=== PATIENT | female | born 1980 | race African-American/Black ===

== ENCOUNTER 2017-10-27 18:58 | Inpatient (IN) | payer MEDICAID ==
[~2017-10-27] VITALS: Ht 170.2 cm; Wt 59.6 kg
[~2017-10-27 18:58] MED LIST: QUET400T PO
[2017-10-27] MEDS ORDERED: LORazepam 2 MG TABLET PO PRN (19:45)
[2017-10-27] MEDS ORDERED: ZOLPIDEM TARTRATE 10 MG TABLET PO PRN (19:45)
[2017-10-27] MEDS ORDERED: QUEtiapine FUMARATE 100 MG TABLET PO PRN (19:45)
[2017-10-27 20:18] VITALS: BP 127/75
[2017-10-27] MEDS: QUEtiapine FUMARATE 200 MG TABLET PO SCH (20:24)
[2017-10-28 08:36] LABS: AMPHET/METH SCREEN,URINE NEGATIVE (NEGATIVE); BARBITURATE SCREEN, URINE NEGATIVE (NEGATIVE); BENZODIAZEPINES SCREEN,URINE NEGATIVE (NEGATIVE); CANNABINOID SCREEN,URINE POSITIVE (NEGATIVE); COCAINE SCREEN,URINE NEGATIVE (NEGATIVE); METHADONE SCREEN, URINE NEGATIVE (NEGATIVE); OPIATE SCREEN,URINE NEGATIVE (NEGATIVE)
[2017-10-28 08:37] LABS: PHENCYCLIDINE SCREEN,URINE NEGATIVE (NEGATIVE)
[2017-10-28 08:42] LABS: APPEARANCE,URINE CLEAR (CLEAR); BILIRUBIN,URINE NEGATIVE (NEGATIVE); GLUCOSE, URINE (UA) NEGATIVE (NEGATIVE); KETONES,URINE NEGATIVE (NEGATIVE); LEUKOCYTE ESTERASE ,URINE NEGATIVE (NEGATIVE); NITRATE,URINE NEGATIVE (NEGATIVE); OCCULT BLOOD,URINE NEGATIVE (NEGATIVE); PH,URINE 6.5 (5.0-8.0); PROTEIN,URINE NEGATIVE (NEGATIVE); UROBILINOGEN,URINE 0.2 mg/dL (<=1.0)
[2017-10-28] MEDS ORDERED: MAGNESIUM HYDROXIDE SUSPENSION 30 ML UDCUP PO PRN (10:15)
[2017-10-28] MEDS ORDERED: TUBERCULIN, PURIFIED PROTEIN DERIVATIVE 5 TU/0.1 ML SYG ID ONE (10:15)
[2017-10-28] MEDS ORDERED: ACETAMINOPHEN 325 MG TABLET PO PRN (10:15)
[2017-10-28] MEDS ORDERED: HydrOXYzine PAMOATE 50 MG CAPSULE PO PRN (10:15)
[2017-10-28] MEDS ORDERED: MAG HYDROX/AL HYDROX/SIMETH ES 30 ML SUSPENSION UDCUP PO PRN (10:15)
[2017-10-28] MEDS ORDERED: PROMETHAZINE HCL 25 MG TABLET PO PRN (10:15)
[2017-10-28] MEDS ORDERED: GuaiFENesin/D-METHORPHAN [SUGAR-FREE] 200-20MG/10 ML SYRUP UDCUP PO PRN (10:15)
[2017-10-28] MEDS ORDERED: LOPERAMIDE HCL 2 MG CAPSULE PO PRN (10:15)
[2017-10-28] MEDS: THIAMINE HCL 100 MG TABLET PO SCH (17:17)
[2017-10-28 21:00] VITALS: BP 116/74
[2017-10-28] MEDS: QUEtiapine FUMARATE 200 MG TABLET PO SCH (21:05)
[2017-10-29 08:14] VITALS: BP 99/60
[2017-10-29] MEDS: NALTREXONE HCL 50 MG TABLET PO SCH (08:47)
[2017-10-29] MEDS: FOLIC ACID 1 MG TABLET PO SCH (08:47)
[2017-10-29] MEDS: THIAMINE HCL 100 MG TABLET PO SCH ×2 (08:47→17:10)
[2017-10-29] MEDS: MULTIVITAMINS WITH MINERALS, THERAPEUTIC TABLET PO SCH (08:47)
[2017-10-29] MEDS ORDERED: FLUoxetine HCL 20 MG CAPSULE PO SCH (09:00)
[2017-10-29 09:50] VITALS: BP 110/65
[2017-10-29] MEDS ORDERED: IBUPROFEN 400 MG TABLET PO PRN (15:30)
[2017-10-29] MEDS ORDERED: HALOPERIDOL LACTATE 5 MG/ML VIAL IM ONE (16:00)
[2017-10-29] MEDS ORDERED: DiphenhydrAMINE HCL 50 MG/ML VIAL IM ONE (16:00)
[2017-10-29] MEDS ORDERED: LORazepam 2 MG/ML VIAL IM ONE (16:00)
[2017-10-29] MEDS ORDERED: DiphenhydrAMINE HCL 50 MG/ML VIAL ONE (16:03)
[2017-10-29] MEDS ORDERED: HALOPERIDOL LACTATE 5 MG/ML VIAL ONE (16:03)
[2017-10-29] MEDS ORDERED: QUEtiapine FUMARATE 200 MG TABLET PO SCH (21:00)
[2017-10-30 08:20] VITALS: BP 90/58
[2017-10-30] MEDS: MULTIVITAMINS WITH MINERALS, THERAPEUTIC TABLET PO SCH (08:54)
[2017-10-30] MEDS: FOLIC ACID 1 MG TABLET PO SCH (08:54)
[2017-10-30] MEDS: NALTREXONE HCL 50 MG TABLET PO SCH (08:54)
[2017-10-30] MEDS: THIAMINE HCL 100 MG TABLET PO SCH ×2 (08:54→16:54)
[2017-10-30] MEDS: MUPIROCIN CALCIUM 2% 22 GM OINTMENT TP SCH ×2 (11:55→16:54)
[2017-10-30 16:00] VITALS: BP 117/67
[2017-10-30] MEDS ORDERED: QUEtiapine FUMARATE 200 MG TABLET PO SCH (21:00)
== END 2017-10-30 20:30 | disposition left against medical advice (07) | DRG 750 ==
LOC: B3A 19:42
PROVIDERS: ADMIT Psychiatry & Neurology Psychiatry; ATTEND Psychiatry & Neurology Psychiatry
DX: F25.9 Schizoaffective disorder, unspecified (principal); D69.6 Thrombocytopenia, unspecified; D64.9 Anemia, unspecified; F17.210 Nicotine dependence, cigarettes, uncomplicated; Z86.14 Personal history of Methicillin resistant Staphylococcus aureus infection; Z91.19 Patient's noncompliance with other medical treatment and regimen
CPT/HCPCS: 80307; 87081; J1200; J1630; J2060